=== PATIENT | male | born 1980 | race Caucasian/White ===

== ENCOUNTER 2016-10-30 17:00 | Emergency (ER) | payer OTHER ==
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
--- NOTE | 2016-10-30 19:22 | ED ORDER SUMMARY ---
..... Patient: JIAN RIZZO OrderSheet [facility] VisitID: [id number] [address] [place] [address] 36y, M Registration Date/Time: 10/30/2016 ORDER SHEET Weight: 72.5 kg (stated) Allergies: Amoxicillin GENERAL ORDERS: CT Sinus/Facial Bones wo Cont Urgent (17:20 10/30/2016 Selma Ferrell) (Ack 17:22 TBergley) (17:26 JSanders R.N.) CT Head wo Cont Urgent (17:20 10/30/2016 Selma Ferrell) (Ack 17:22 TBergley) (17:26 JSanders R.N.) Ribs Unilat w PA Chest Right Urgent (17:20 10/30/2016 Selma Ferrell) (Ack 17:22 TBergley) (17:26 JSanders R.N.) MEDICATION ORDERS: Morphine IM 4 mg (HIGH ALERT MEDICATION, NOW) (17:19 10/30/2016 Selma Ferrell) (17:26 JSanders R.N.) Tdap IM 0.5 mL (NOW, per protocol) (17:19 10/30/2016 Selma Ferrell) (17:48 FELIXanders R.N.) Afrin Nasal [place] 2 sprays (NOW, both nares) (18:10 10/30/2016 Ezekiels R.N. verbal order read back to Selma Ferrell) (18:11 FELIXanders R.N.) IV FLUIDS: ORDER SHEET NOTES: [Electronically signed by Dhiraj Mujica R.N. (19:48 10/30/2016)] [Electronically signed by Edison Aguilar Dr. (21:25 10/30/2016)] [Electronically locked/signed by Dhiraj Mujica R.N. (19:48 10/30/2016)]
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
--- NOTE | 2016-10-30 19:22 | ED ORDER SUMMARY ---
..... Patient: JIAN RIZZO OrderSheet [facility] VisitID: [id number] [address] [place] [address] 36y, M Registration Date/Time: 10/30/2016 ORDER SHEET Weight: 72.5 kg (stated) Allergies: Amoxicillin GENERAL ORDERS: CT Sinus/Facial Bones wo Cont Urgent (17:20 10/30/2016 Selma Ferrell) (Ack 17:22 TBergley) (17:26 JSanders R.N.) CT Head wo Cont Urgent (17:20 10/30/2016 Selma Ferrell) (Ack 17:22 TBergley) (17:26 JSanders R.N.) Ribs Unilat w PA Chest Right Urgent (17:20 10/30/2016 Selma Ferrell) (Ack 17:22 TBergley) (17:26 JSanders R.N.) MEDICATION ORDERS: Morphine IM 4 mg (HIGH ALERT MEDICATION, NOW) (17:19 10/30/2016 Selma Ferrell) (17:26 JSanders R.N.) Tdap IM 0.5 mL (NOW, per protocol) (17:19 10/30/2016 Selma Ferrell) (17:48 FELIXanders R.N.) Afrin Nasal [place] 2 sprays (NOW, both nares) (18:10 10/30/2016 Ezekiels R.N. verbal order read back to Selma Ferrell) (18:11 FELIXanders R.N.) IV FLUIDS: ORDER SHEET NOTES: [Electronically signed by Dhiraj Mujica R.N. (19:48 10/30/2016)] [Electronically signed by Edison Aguilar Dr. (21:25 10/30/2016)] [Electronically locked/signed by Dhiraj Mujica R.N. (19:48 10/30/2016)]
--- NOTE | 2016-10-30 21:26 | ED MED RECONCILIATION SUMMARY ---
Patient: JIAN RIZZO Medication Reconciliation Report [facility] VisitID: [id number] [address] [place] [address] 36y, M Registration Date/Time: 10/30/2016 Weight: 72.5 kg Height/Length: 69 in. BMI: 23.6 ALLERGIES: Amoxicillin The patient's Home Medications are listed below: NONE. The source(s) of the original Home Medication information: Not obtained. The following Medications were given to the patient in the Emergency Department: Morphine [IM] IM 4 mg, administered: 10/30/2016 5:26:00 PM TDAP [IM] IM 0.5 mL, administered: 10/30/2016 5:48:00 PM Afrin [Nasal [place]] Nasal [place] 2 spray, administered: 10/30/2016 6:11:00 PM The following Medications were prescribed to the patient: Hydrocodone/APAP 5mg / 325mg: take 1 orally. Dispense fifteen (15). No refill. -- Edison Aguilar Dr.
--- NOTE | 2016-10-30 21:26 | ED MAR SUMMARY ---
..... Medication Administration Record [facility] [address] [place] [address] Patient: JIAN RIZZO Visit ID: [id number] 36y, M Weight: 72.5 kg Height/Length: 69 in BMI: 23.6 ALLERGIES: Amoxicillin Given 17:26 10/30/2016 Jessica Del Valle R.N. Medication Administered: MORPHINE [IM] (MORPHINE SULFATE (PF)), Dose: 4 mg IM. Medication Ordered: Morphine IM 4 mg (HIGH ALERT MEDICATION, NOW). Given 17:48 10/30/2016 Jessica Del Valle R.N. Medication Administered: TDAP [IM], Dose: 0.5 mL IM. Medication Ordered: Tdap IM 0.5 mL (NOW, per protocol). Given 18:11 10/30/2016 Jessica Del Valle R.N. Medication Administered: AFRIN [NASAL SPRAY] (OXYMETAZOLINE HCL), Dose: 2 spray Nasal [place]. Medication Ordered: Afrin Nasal [place] 2 sprays (NOW, both nares).
--- NOTE | 2016-10-30 21:26 | ED DISCHARGE INSTRUCTIONS ---
Patient: JIAN RIZZO General Instructions [facility] VisitID: [id number] [address], [place] [address] 36y, M Registration Date/Time: 10/30/2016 Single deep laceration to the nose.Treatment of laceration not delayed. No infection or foreign body present. Multiple right rib fractures (8 and 9). Closed displaced nasal fracture. Multiple superficial abrasions to the head. INSTRUCTIONS Apply ice for 20 minutes four times a day. Don't apply ice directly to skin. Prescription Medications: Hydrocodone/APAP 5mg / 325mg: take 1 orally. Dispense fifteen (15). No refill. Follow-up: Screening today revealed the patient's blood pressure to be in the pre-hypertensive range. The patient should follow up with a primary care provider for blood pressure management. Follow-up with: [facility], , , [address], , [facility] [id number] Follow up in five days for suture removal. Call for an appointment. ADDITIONAL INFORMATION Laceration (All Closures) Alaceration is a cut through the skin. This will usually require stitches (sutures) or joel if it is deep. Minor cuts may be treated with a surgical tape closure orskin glue. Home care The following guidelines will help you care for your laceration at home: Extremity, face, or trunk wounds Keep the wound clean and dry. If a bandage was applied and it becomes wet or dirty, replace it. Otherwise, leave it in place for the first 24 hours. If stitches or joel were used, clean the wound daily. After removing the bandage, wash the area with soap and water. Use a wet cotton swab to loosen and remove any blood or crust that forms. The doctor may prescribe an antibiotic cream or ointment to prevent infection. Do not stop taking this medication until you have finished the prescribed course or the doctor tells you to stop. The doctor may also prescribe medications for pain. Follow the doctors instructions for taking these medications. You may remove the bandage to shower as usual after the first 24 hours, but do not soak the area in water (no swimming) until the stitches or joel are removed. If surgical tape was used, keep the area clean and dry. If it becomes wet, blot it dry with a towel. If skin glue was used, do not scratch, rub, or pick at the adhesive film. Do not place tape directly over the film. Do not apply liquid, ointment, or creams to the wound while the film is in place. Do not clean the wound with peroxide and do not apply ointments. Avoid activities that cause heavy sweating until the film has fallen off. Protect the wound from prolonged exposure to sunlight or tanning lamps. You may shower as usual but do not soak the wound in water (no baths or swimming). The film will fall off by itself in 510 days. Scalp wounds During the first two days, you may carefully rinse your hair in the shower to remove blood, glass or dirt particles. After two days, you may shower and shampoo your hair normally. Do not soak your scalp in the tub or go swimming until the stitches or joel have been removed. Talk with your doctor before applying any antibiotic ointment to the wound. Mouth wounds Eat soft foods to reduce pain. If the cut is inside of your mouth, clean by rinsing after each meal and at bedtime with a mixture of equal parts water and hydrogen peroxide (do not swallow!). Or, you can use a cotton swab to directly apply hydrogen peroxide onto the cut. Mouth wounds can be painful when eating. You may use an [id number] local numbing solution for pain relief. If this is not available, you may use any numbing solution for teething babies. You may apply this directly to the sores with a cotton-tip swab or with your finger. Follow-up care Follow up with your health care provider. Most skin wounds heal within ten days. Mouth and facial wounds heal within five days. However, even with proper treatment, a wound infection may sometimes occur. Therefore, you should check the wound daily for signs of infection listed below. Stitches should be removed from the face within five days; stitches and joel should be removed from other parts of the body within 714 days. If dissolving stitches were used in the mouth, these will fall out or dissolve without the need for removal. If tape closures were used, remove them yourself if they have not fallen off after 7 days. Ifskin glue was used, the film will fall off by itself in 510 days. When to seek medical care Get prompt medical attention if any of these occur: Bleeding not controlled by direct pressure Signs of infection, including increasing pain in the wound, increasing wound redness or swelling, or pus coming from the wound Fever of 100.4F (38C) or higher, or as directed by your health care provider Stitches or joel come apart or fall out or surgical tape falls off before 7 days Wound edges re-open Abrasions Abrasions are skin scrapes. Their treatment depends on how large and deep the abrasion is. Home Care: If you were given a bandage, change it once a day. If your bandage sticks to the wound, soak it in warm water until it loosens. Wash the area with soap and water to remove all the cream/ointment. You may do this in a sink, under a tub faucet or shower. Rinse off the soap and pat dry with a clean towel. Reapply cream/ointment according to your doctor's instructions. This will prevent infection and help prevent the bandage from sticking. Cover the wound with a fresh non-stick bandage (Telfa). Repeat steps 1 to 4 daily, or as directed by your doctor. If the bandage becomes wet or dirty, change it as soon as possible. You may use acetaminophen (Tylenol) or ibuprofen (Motrin, Advil) to control pain, unless another pain medicine was prescribed. [ NOTE : If you have chronic liver or kidney disease or ever had a stomach ulcer or GI bleeding, talk with your doctor before using these medicines.] Do not use ibuprofen in children under six months of age. Follow Up with your physician or this facility as directed by our staff. Most skin wounds heal within ten days. However, an infection may occur despite proper treatment. Therefore, look for the early signs of infection listed below. Get Prompt Medical Attention if any of the following occur: Increasing pain in the wound Increasing redness or swelling Pus coming from the wound Fever of 100.4F (38C) or higher, or as directed by your healthcare provider Fractured Nose [With X-Ray] You have a fracture (break) in the nasal bone. It may be a minor hairline crack or a major break with the parts pushed out of place. A fractured nose causes pain, swelling and nasal stuffiness. Sometimes, there is also bleeding from the nose. By the next day, it is common to get bruising around the eyes from a broken nose. A minor fracture will heal in about 3-4 weeks with no additional treatment needed. A major break, causing a change in shape of the nose, will require straightening of the nasal bones (reduction) by an ENT doctor (nose specialist). Some fractures may need a reduction as soon as possible (such as those with continued bleeding). Otherwise, it is best to wait a few days until the swelling has gone down. This gives a better result since the doctor can easily see when the nose is back in the right position. Home Care: Apply an ice pack (ice cubes in a plastic bag, wrapped in a towel) over the injured area for 20 minutes every 1-2 hours the first day. Continue with ice packs 3-4 times a day for the next two days, then as needed for the relief of pain and swelling. Notify your doctor if you are taking aspirin or blood thinners (coumadin). These will promote nose bleeding. Your dose may need to be adjusted. You may use acetaminophen (Tylenol) or ibuprofen (Motrin, Advil) to control pain, unless another medicine was prescribed. [NOTE: If you have chronic liver or kidney disease or ever had a stomach ulcer or GI bleeding, talk with your doctor before using these medicines.] Avoid alcohol and hot liquids for the next two days. Alcohol or hot liquids in your mouth can dilate blood vessels in your nose and cause bleeding. Avoid blowing your nose for the first two days. Then, do so gently so you don't cause bleeding. Do not play contact sports in the next six weeks unless you can protect your nose from re-injury. Special custom-fitted plastic face masks are available for this purpose. Follow Up with your doctor or as advised. If your nose appears crooked or if you continue to have difficulty breathing through one or both sides of your nose after the swelling goes down, call the ENT doctor (nose specialist) for an appointment. If you have trouble getting an ENT appointment, call your regular doctor or return here. If the bones are out of place, a reduction should be done between 6-10 days after the injury in adults; and between 3-7 days after injury in children. After that time, the bones become more difficult to move back into position. [NOTE: Any X-rays taken will be reviewed by a radiologist. You will be notified if there are new findings that may affect your care.] Get Prompt Medical Attention if any of the following occur: Bleeding from the nose that is not controlled by pinching the nostrils together for 15 minutes Increasing facial swelling, pain or redness Fever of 100.4F (38C) or higher, or as directed by your healthcare provider Unable to breathe from both sides of the nose after swelling goes down Sinus pain Repeated vomiting Severe or worsening headache or dizziness Unusual drowsiness, or unable to awaken as usual Confusion or change in behavior or speech Convulsion (seizure) Rib Fracture You have a fracture (break) of one or more ribs. Rib fractures do not require a cast like other bones. They will heal by themselves in about 4-6 weeks. The first 3-4 weeks will be the most painful because deep breathing, coughing or changing position from sitting to lying down, may cause the broken ends to move slightly. Home Care: Rest. You should not be doing any heavy lifting or strenuous exertion until the pain goes away. Because it hurts to breathe when you have a broken rib, there is risk of getting pneumonia from poor airflow through your lungs. To prevent this: Take four very deep breaths at least four times a day (exhale through pursed lips as if you are blowing up a balloon). If an "incentive spirometer" (breathing exercise device) was given to you, use it at least four times a day, or as directed. Apply an ice pack (ice cubes in a plastic bag, wrapped in a towel) over the injured area for 20 minutes every 1-2 hours the first day. Continue with ice packs 3-4 times a day for the next two days, then as needed for the relief of pain and swelling. You may use acetaminophen (Tylenol) or ibuprofen (Motrin, Advil) to control pain, unless another pain medicine was prescribed. [NOTE: If you have chronic liver or kidney disease or ever had a stomach ulcer or GI bleeding, talk with your doctor before using these medicines.] If your pain is not controlled by the treatment given, contact your doctor. Sometimes a stronger pain medicine may be needed. A nerve block (numbing the nerve between the ribs) can be performed in case of severe pain. Follow Up with your doctor during the next week, or as advised. Rarely, a broken rib will cause complications within the first few days that may not be evident during your initial exam (such as, collapsed lung, bleeding around the lung or into the abdomen, or pneumonia). Therefore, watch for the signs below. [NOTE: If x-rays were taken, they will be reviewed by a radiologist. You will be notified of any new findings that may affect your care.] Get Prompt Medical Attention if any of the following occur: Shortness of breath Increasing chest pain with breathing Dizziness, weakness or fainting New or worsening abdominal pain Fever of 100.4F (38C) or higher, or as directed by your healthcare provider Congested cough Hydrocodone Bitartrate, Acetaminophen Oral tablet What is this medicine? ACETAMINOPHEN; HYDROCODONE (a set a GALINA mi fen; donovan droe KOE done) is a pain reliever. It is used to treat mild to moderate pain. How should I use this medicine? Take this medicine by mouth. Swallow it with a full glass of water. Follow the directions on the prescription label. If the medicine upsets your stomach, take the medicine with food or milk. Do not take more than you are told to take. Talk to your denial resolution specialist regarding the use of this medicine in children. This medicine is not approved for use in children. What side effects may I notice from receiving this medicine? Side effects that you should report to your doctor or health health care legal assistant as soon as possible: allergic reactions like skin rash, itching or hives, swelling of the face, lips, or tongue breathing problems confusion feeling faint or lightheaded, falls stomach pain yellowing of the eyes or skin Side effects that usually do not require medical attention (report to your doctor or health health care legal assistant if they continue or are bothersome): nausea, vomiting stomach upset What may interact with this medicine? alcohol antihistamines isoniazid medicines for depression, anxiety, or psychotic disturbances medicines for sleep muscle relaxants naltrexone narcotic medicines (opiates) for pain phenobarbital ritonavir tramadol What if I miss a dose? If you miss a dose, take it as soon as you can. If it is almost time for your next dose, take only that dose. Do not take double or extra doses. Where should I keep my medicine? Keep out of the reach of children. This medicine can be abused. Keep your medicine in a safe place to protect it from theft. Do not share this medicine with anyone. Selling or giving away this medicine is dangerous and against the law. Store at room temperature between 15 and 30 degrees C (59 and 86 degrees F). Protect from light. Keep container tightly closed. Throw away any unused medicine after the expiration date. Discard unused medicine and used packaging carefully. Pets and children can be harmed if they find used or lost packages. What should I tell my health care provider before I take this medicine? They need to know if you have any of these conditions: brain tumor Crohn's disease, inflammatory bowel disease, or ulcerative colitis drink more than 3 alcohol-containing drinks per day drug abuse or addiction head injury heart or circulation problems kidney disease or problems going to the bathroom liver disease lung disease, asthma, or breathing problems an unusual or allergic reaction to acetaminophen, hydrocodone, other opioid analgesics, other medicines, foods, dyes, or preservatives or trying to get breast-feeding What should I watch for while using this medicine? Tell your doctor or health health care legal assistant if your pain does not go away, if it gets worse, or if you have new or a different type of pain. You may develop tolerance to the medicine. Tolerance means that you will need a higher dose of the medicine for pain relief. Tolerance is normal and is expected if you take the medicine for a long time. Do not suddenly stop taking your medicine because you may develop a severe reaction. Your body becomes used to the medicine. This does NOT mean you are addicted. Addiction is a behavior related to getting and using a drug for a non-medical reason. If you have pain, you have a medical reason to take pain medicine. Your doctor will tell you how much medicine to take. If your doctor wants you to stop the medicine, the dose will be slowly lowered over time to avoid any side effects. You may get drowsy or dizzy when you first start taking the medicine or change doses. Do not drive, use machinery, or do anything that may be dangerous until you know how the medicine affects you. Stand or sit up slowly. There are different types of narcotic medicines (opiates) for pain. If you take more than one type at the same time, you may have more side effects. Give your health care provider a list of all medicines you use. Your doctor will tell you how much medicine to take. Do not take more medicine than directed. Call emergency for help if you have problems breathing. The medicine will cause constipation. Try to have a bowel movement at least every 2 to 3 days. If you do not have a bowel movement for 3 days, call your doctor or health health care legal assistant. Too much acetaminophen can be very dangerous. Do not take Tylenol (acetaminophen) or medicines that contain acetaminophen with this medicine. Many non-prescription medicines contain acetaminophen. Always read the labels carefully. You have been given the following additional information: Laceration, All Abrasion Fracture, Nose (With X-Ray) Fracture, Rib Hydrocodone Bitartrate, Acetaminophen Oral tablet (Electronically signed by Edison Aguilar Dr. 10/30/2016 21:25)
--- NOTE | 2016-10-30 21:26 | ED MED RECONCILIATION SUMMARY ---
Patient: JIAN RIZZO Medication Reconciliation Report [facility] VisitID: [id number] [address] [place] [address] 36y, M Registration Date/Time: 10/30/2016 Weight: 72.5 kg Height/Length: 69 in. BMI: 23.6 ALLERGIES: Amoxicillin The patient's Home Medications are listed below: NONE. The source(s) of the original Home Medication information: Not obtained. The following Medications were given to the patient in the Emergency Department: Morphine [IM] IM 4 mg, administered: 10/30/2016 5:26:00 PM TDAP [IM] IM 0.5 mL, administered: 10/30/2016 5:48:00 PM Afrin [Nasal [place]] Nasal [place] 2 spray, administered: 10/30/2016 6:11:00 PM The following Medications were prescribed to the patient: Hydrocodone/APAP 5mg / 325mg: take 1 orally. Dispense fifteen (15). No refill. -- Edison Aguilar Dr.
--- NOTE | 2016-10-30 21:26 | ED MAR SUMMARY ---
..... Medication Administration Record [facility] [address] [place] [address] Patient: JIAN RIZZO Visit ID: [id number] 36y, M Weight: 72.5 kg Height/Length: 69 in BMI: 23.6 ALLERGIES: Amoxicillin Given 17:26 10/30/2016 Jessica Del Valle R.N. Medication Administered: MORPHINE [IM] (MORPHINE SULFATE (PF)), Dose: 4 mg IM. Medication Ordered: Morphine IM 4 mg (HIGH ALERT MEDICATION, NOW). Given 17:48 10/30/2016 Jessica Del Valle R.N. Medication Administered: TDAP [IM], Dose: 0.5 mL IM. Medication Ordered: Tdap IM 0.5 mL (NOW, per protocol). Given 18:11 10/30/2016 Jessica Del Valle R.N. Medication Administered: AFRIN [NASAL SPRAY] (OXYMETAZOLINE HCL), Dose: 2 spray Nasal [place]. Medication Ordered: Afrin Nasal [place] 2 sprays (NOW, both nares).
== END 2016-10-30 19:37 | disposition home or self-care (01) ==
LOC: ED SRH 17:00
DX: S22.41XA Multiple fractures of ribs, right side, initial encounter for closed fracture (principal); S02.2XXA Fracture of nasal bones, initial encounter for closed fracture; S01.21XA Laceration without foreign body of nose, initial encounter; S00.81XA Abrasion of other part of head, initial encounter; Y00.XXXA Assault by blunt object, initial encounter; Y93.9 Activity, unspecified; Y92.830 Public park as the place of occurrence of the external cause; Y99.9 Unspecified external cause status; F17.210 Nicotine dependence, cigarettes, uncomplicated; Z88.0 Allergy status to penicillin